=== PATIENT | female | born 1990 | race American Indian/Alaskan Native ===

== ENCOUNTER 2018-05-30 11:30 | Outpatient (CLI) | payer MEDICAID ==
[2018-05-30] MEDS ORDERED: LACTATED RINGERS 500 ML IV ONE (11:35)
[2018-05-30 11:46] VITALS: BP 118/59
== END 2018-05-30 12:35 | disposition home or self-care (01) ==
LOC: TRG 11:30
PROVIDERS: ATTEND Obstetrics & Gynecology
DX: O47.03 False labor before 37 completed weeks of gestation, third trimester (principal); Z3A.31 31 weeks gestation of pregnancy
CPT/HCPCS: 59025

== ENCOUNTER 2018-06-21 15:20 | Outpatient (CLI) | payer MEDICAID ==
[2018-06-21 17:22] LABS: Hematocrit 30.7 % (30.3-42.9); Hemoglobin 10.1 gm/dl (10.1-14.3); Mean Corpuscular HGB Conc 33 % (30-34); Mean Corpuscular Volume 94 fl (79-97); Platelet Count 329 K/mm3 (140-440); Red Blood Count 3.27 M/mm3 (3.65-5.03)
[2018-06-21 17:49] VITALS: BP 131/80
[2018-06-21] MEDS ORDERED: LACTATED RINGERS 500 ML IV ONE (20:01)
--- NOTE | 2018-06-21 22:46 | Ultrasound Report ---
US OB LIMITED CLINICAL INDICATION: Female, 28 years of age. r/o placenta ab / saira COMPARISON: None available. TECHNIQUE: Several real-time grayscale and color Doppler images were obtained. Permanent images were secured for documentation. FINDINGS: Limited exam performed. Single live IUP demonstrated. heart rate 129 bpm. Placenta lo cation anterior. No placenta previa. No evidence of placental abruption. Normal SAIRA 7.6 cm. pos ition is cephalic. IMPRESSION: Limited exam performed. presentation cephalic. SAIRA lower limits of normal measuring 7.6 cm. No placental abnormality. This document is electronically signed by Ellen Draper DO., June 21 2018 10:44:37 PM ET
--- NOTE | 2018-06-21 22:48 | Ultrasound Report ---
US OB BPP WO NON-STRESS CLINICAL INDICATION: Female, 28 years of age. bpp/re COMPARISON: Limited OB ultrasound from today. TECHNIQUE: Several real-time grayscale and color Doppler images were obtained. Permanent images were secured for documentation. FINDINGS: Normal breathing movements, movements, posture and tone, and qualitative amniotic fluid volume. heart rate 129 bpm. Impression: Biophysical profile score 8/8. This document is electronically signed by Ellen Draper DO., June 21 2018 10:46:00 PM ET
== END 2018-06-21 19:30 | disposition home or self-care (01) ==
LOC: TRG 15:20
PROVIDERS: ATTEND Obstetrics & Gynecology
DX: O47.03 False labor before 37 completed weeks of gestation, third trimester (principal); Z3A.35 35 weeks gestation of pregnancy
CPT/HCPCS: 36415; 59025; 76815; 76819; 85027

== ENCOUNTER 2018-07-30 00:21 | Inpatient (IN) | payer MEDICAID ==
[2018-07-30] MEDS ORDERED: NITRATEST PAPER MC ONE (01:10)
[2018-07-30] MEDS ORDERED: LACTATED RINGERS 1,000 ML ONE (01:15)
[2018-07-30] MEDS ORDERED: BRETHINE SUB-Q PRN (01:27)
[2018-07-30] MEDS ORDERED: XYLOCAINE 2% INFILTRATI ONE (01:27)
[2018-07-30] MEDS ORDERED: MINERAL OIL PO PRN (01:27)
[2018-07-30] MEDS ORDERED: SUBLIMAZE IV PRN (01:27)
[2018-07-30] MEDS ORDERED: BRETHINE IVP PRN (01:27)
[2018-07-30] MEDS ORDERED: AMPICILLIN/NS 2 GM/100 ML 2 GM/100 ML BAG IV ONE (01:27)
[2018-07-30 01:53] LABS: Hematocrit 34.1 % (30.3-42.9); Hemoglobin 11.1 gm/dl (10.1-14.3); Mean Corpuscular HGB Conc 33 % (30-34); Mean Corpuscular Volume 95 fl (79-97); Platelet Count 341 K/mm3 (140-440); Red Blood Count 3.59 M/mm3 (3.65-5.03); Red Cell Distribution Width 14.1 % (13.2-15.2)
[2018-07-30] MEDS ORDERED: PITOCin/NS 20 UNIT/1000ML DRIP 20 UNITS/1,000 ML BAG IV SCH (02:00)
[2018-07-30] MEDS ORDERED: LACTATED RINGERS 1,000 ML IV SCH (02:00)
[2018-07-30] MEDS ORDERED: MARCAINE 0.5% INFILTRATI ONE (02:12)
--- NOTE | 2018-07-30 02:37 | Anesthesia Consultation ---
Anesthesia Consult and Med Hx Date of service: 07/30/18 - Airway Anesthetic Teeth Evaluation: Good ROM Head & Neck: Adequate Mental/Hyoid Distance: Adequate Mallampati Class: Class II Intubation Access Assessment: Good - Pulmonary Exam CTA: Yes - Cardiac Exam Cardiac Exam: RRR - Pre-Operative Health Status ASA Pre-Surgery Classification: ASA2 Proposed Anesthetic Plan: Epidural - Pulmonary Hx Asthma: No COPD: No Hx Pneumonia: No - Cardiovascular System Hx Hypertension: No - Central Nervous System Hx Seizures: No Hx Psychiatric Problems: No - Endocrine Hx Renal Disease: No Hx End Stage Renal Disease: No Hx Hypothyroidism: No Hx Hyperthyroidism: No - Hematic Hx Anemia: No Hx Sickle Cell Disease: No - Other Systems Hx Alcohol Use: No
[2018-07-30] MEDS ORDERED: NARCAN 2 MG/2 ML IV PRN (02:38)
[2018-07-30] MEDS ORDERED: fentaNYL-BUPIV 2 MCG/ML-0.125% 200 MCG/100 ML BAG EPIDURAL SCH (03:00)
[2018-07-30] MEDS ORDERED: PITOCin/NS 30 UNIT/500ML 30 UNITS/500 ML BAG IV SCH (05:00)
[2018-07-30] MEDS ORDERED: AMPICILLIN/NS 1 GM/50 ML 1 GM/50 ML BAG IV SCH (05:27)
--- NOTE | 2018-07-30 07:24 | History and Physical Report ---
History of Present Illness Date of examination: 07/30/18 Date of admission: 07/30/18 04:27 Chief complaint: SROM, labor Past History Past Medical History: no pertinent history Past Surgical History: no surgical history Social history: no significant social history - Obstetrical History : 3 Medications and Allergies Allergies Allergy/AdvReac Type Severity Reaction Status Date / Time No Known Allergies Allergy Verified 07/30/18 01:09 Home Medications Medication Instructions Recorded Confirmed Last Taken Type Vit-Fe Fumar-FA [ 1 tab PO DAILY 07/30/18 07/30/18 07/29/18 History Vitamin] Active Meds: Active Medications Ephedrine Sulfate (Ephedrine Sulfate) 10 mg IV Q2M PRN PRN Reason: Hypotension Ephedrine Sulfate (Ephedrine Sulfate) 10 mg IV Q2M PRN PRN Reason: Hypotension Fentanyl (Sublimaze) 100 mcg IV Q2H PRN PRN Reason: Labor Pain Last Admin: 07/30/18 01:30 Dose: 100 mcg Documented by: Oxytocin/Sodium Chloride (Pitocin/Ns 20 Unit/1000ml Drip) 20 units in 1,000 mls @ 125 mls/hr IV DIRECT JASON Oxytocin/Sodium Chloride (Pitocin/Ns 30 Unit/500ml) 30 units in 500 mls @ 2 mls/hr IV TITR JASON; Protocol Lactated Ringer's (Lactated Ringers) 1,000 mls @ 125 mls/hr IV DIRECT JASON Last Admin: 07/30/18 02:00 Dose: 125 mls/hr Documented by: Ampicillin Sodium (Ampicillin/Ns 1 Gm/50 Ml) 1 gm in 50 mls @ 100 mls/hr IV Q4HR JASON; Protocol Last Admin: 07/30/18 06:46 Dose: 100 mls/hr Documented by: Fentanyl/Bupivacaine/Sodium Chlor (Fentanyl-Bupiv 2 Mcg/Ml-0.125%) 200 mcg in 100 mls @ 12 mls/hr EPIDURAL TITR JASON; Protocol Last Admin: 07/30/18 03:00 Dose: 12 mls/hr Documented by: Mineral Oil (Mineral Oil) 30 ml PO QHS PRN PRN Reason: Constipation Naloxone HCl (Narcan 2 Mg/2 Ml) 0.2 mg IV Q5M PRN PRN Reason: Respiratory sedation Terbutaline Sulfate (Brethine) 0.25 mg SUB-Q ONCE PRN PRN Reason: Hyperstimulation/Hypertonicity Terbutaline Sulfate (Brethine) 0.25 mg IVP ONCE PRN PRN Reason: Hyperstimulation/Hypertonicity Review of Systems All systems: negative - Vital Signs Vital signs: Vital Signs Pulse BP 85 125/72 07/30/18 00:38 07/30/18 00:38 Temp Pulse Resp BP Pulse Ox 97.6 F 85 16 104/59 100 07/30/18 03:11 07/30/18 07:19 07/30/18 03:11 07/30/18 07:19 07/30/18 07:16 - Physical Exam Breasts: Positive: deferred Cardiovascular: Regular rate Abdomen: Positive: normal appearance, soft Genitourinary (Female): Positive: normal external genitalia Uterus: Positive: normal size - Obstetrical FHR: auscultation normal, category 2 Uterine Contraction Monitor Mode: External Uterine Contraction Pattern: Regular Uterine Tone Measurement Phase: Resting Uterine Contraction Intensity: Strong/Firm Results Result Diagrams: 07/30/18 01:25 Abnormal lab results 07/30/18 Range/Units 01:25 WBC 14.4 H (4.5-11.0) K/mm3 RBC 3.59 L (3.65-5.03) M/mm3 All other labs normal. Assessment and Plan 1. SROM and active labor 2. Category 2 FHT, reassuring P: 1. Continue Pitocin augmentation. Anticipate
--- NOTE | 2018-07-30 08:29 | Procedure Note ---
OB Delivery Note - Vaginal Delivery presentation: vertex Delivery position: OA Intrapartum events: none, mult.variable deceleratio Delivery induction: none Delivery augmentation: pitocin Delivery monitor: external FHT, external uterine Route of delivery: Delivery placenta: spontaneous Delivery cord: other (Body cord) Episiotomy: none Delivery laceration: none Anesthesia: epidural Delivery comments: Excellent maternal effort resulted in of viable male weighing 6lb 8 oz, Apgars 8/9. Length of second stage: 2 minutes. Head restituted ROT, shoulders followed easily. Body cord x1 noted. EBL 300mL. Brisk bleeding upon delivery of placenta resolved with fundal massage and IV Pitocin. No lacerations noted. Placenta intact, du, 3 vessel cord. Bilateral polydactyly of hands noted on infant. Pt and infant skin to skin, plan on breast feeding.
[2018-07-30] MEDS ORDERED: LANSINOH TP PRN (08:32)
[2018-07-30] MEDS ORDERED: TYLENOL PO PRN (08:32)
[2018-07-30] MEDS ORDERED: PHENERGAN PO PRN (08:32)
[2018-07-30] MEDS ORDERED: BENADRYL PO PRN (08:32)
[2018-07-30] MEDS ORDERED: TUCKS PAD TP PRN (08:32)
[2018-07-30] MEDS ORDERED: PHENERGAN PR PRN (08:32)
[2018-07-30] MEDS ORDERED: ZOFRAN IV PRN (08:32)
[2018-07-30] MEDS ORDERED: SODIUM CHLORIDE FLUSH SYRINGE 10 ML IV NR (09:00)
[2018-07-30] MEDS ORDERED: DULCOLAX PR PRN (10:00)
[2018-07-30] MEDS ORDERED: AFLURIA QUAD 2018-2019 SYRINGE IM ONE (12:00)
[2018-07-30] MEDS: IBUPROFEN PO SCH (13:42)
--- NOTE | 2018-07-30 20:08 | Post Anesthesia Evaluation ---
- Post Anesthesia Evaluation Patient Participated: Yes Airway Patent: Yes Stable Respiratory Function: Yes Nausea/Vomiting: No Temp > 96.8F: Yes Pain Manageable: Yes Adequeate Hydration: Yes Anesthesia Complications: No Block Receding Appropriately: Yes Patient on Ventilator: No
[2018-07-30 21:35] LABS: Hematocrit 30.3 % (30.3-42.9); Hemoglobin 9.9 gm/dl (10.1-14.3)
[2018-07-30] MEDS ORDERED: MILK OF MAGNESIA PO PRN (22:00)
[2018-07-31] MEDS: IBUPROFEN PO SCH ×5 (00:23→22:09)
[2018-07-31] MEDS ORDERED: BOOSTRIX IM ONE (06:00)
--- NOTE | 2018-07-31 08:36 | Progress Note ---
Assessment and Plan 1. PPD1 s/p of viable male 2. Desires to breast feed, baby in NICU with formula 3. Vitals wnl 4. Iron deficiency anemia Plan: 1. consult, order breast pump 2. Iron supplementation 3. D/C tomorrow or on PPD3 Subjective - Subjective Date of service: 07/31/18 Principal diagnosis: vaginal delivery Interval history: day 1 s/p of viable male infant Patient reports: appetite normal, voiding normally, pain well controlled, ambulating normally [place]: in NICU Objective - Vital Signs Latest vital signs: Vital Signs Temp Pulse Resp BP BP Pulse Ox 07/31/18 01:23 18 07/31/18 00:23 18 07/31/18 00:08 98.2 F 79 20 116/73 98 07/30/18 16:28 98.2 F 85 18 115/59 07/30/18 13:03 98.2 F 70 18 125/81 07/30/18 11:00 98 F 71 18 116/72 99 07/30/18 10:31 80 124/78 07/30/18 10:16 76 120/73 07/30/18 10:01 75 120/61 07/30/18 09:46 70 116/62 07/30/18 09:31 71 121/68 07/30/18 09:16 77 124/68 07/30/18 09:02 81 133/79 07/30/18 08:46 75 129/65 Intake and Output 07/30/18 07/31/18 07/31/18 23:59 07:59 15:59 Intake Total 720 360 Balance 720 360 Intake: Oral 720 Intake, Free Water 360 Other: Total, Intake Amount 240 # Voids Void 1 1 - Exam Breasts: Present: deferred Cardiovascular: Present: Regular rate, Normal S1, Normal S2 Abdomen: Present: normal appearance, soft, normal bowel sounds Uterus: Present: normal, firm, fundal height below umbilicus Extremities: Present: normal - Labs Labs: Abnormal lab results 07/30/18 Range/Units 20:57 Hgb 9.9 L (10.1-14.3) gm/dl
[2018-07-31] MEDS ORDERED: FEOSOL PO SCH (10:00)
[2018-07-31] MEDS ORDERED: AFLURIA QUAD 2018-2019 SYRINGE IM ONE (12:00)
--- NOTE | 2018-08-01 01:27 | Progress Note ---
Assessment and Plan 1. PPD2 post of viable male , currently in NICU 2. Anemia 3. Vital signs stable 4. Breast pumping Plan: Discharge to home in the late afternoon Iron supplementation Follow up with pediatric surgeon in 2-4 weeks - Patient Problems (1) (spontaneous vaginal delivery) Current Visit: No Status: Acute Subjective - Subjective Date of service: 08/01/18 Principal diagnosis: vaginal delivery Interval history: day 1 s/p of viable male infant Patient reports: appetite normal, voiding normally, pain well controlled, bowel movement, ambulating normally : doing well, in NICU Objective - Vital Signs Latest vital signs: Vital Signs Temp Pulse Resp BP 07/31/18 16:25 98.3 F 69 18 120/79 07/31/18 07:40 97.8 F 78 18 114/61 Intake and Output 07/31/18 07/31/18 08/01/18 15:59 23:59 07:59 Intake Total 480 Balance 480 Intake: Oral 480 Other: Total, Intake Amount 480 - Exam Cardiovascular: Present: Regular rate, Normal S1, Normal S2 Lungs: Present: Clear to auscultation, Normal air movement Abdomen: Present: normal appearance, soft Uterus: Present: normal, firm, fundal height below umbilicus Extremities: Present: normal
[2018-08-01 01:28] VITALS: BP 117/79
--- NOTE | 2018-08-01 01:32 | Discharge Summary ---
Providers - Providers Date of Admission: 07/30/18 04:27 Date of discharge: 08/01/18 Attending physician: ANDREW MIRANDA MD 07/30/18 08:34 Consult to [employer] [CONS] Routine Reason For Exam: assistance with , SNS 07/31/18 08:37 Consult to [employer] [CONS] Urgent Reason For Exam: Primary care physician: ANDREW MIRANDA MD Hospitalization Reason for admission: active labor, rupture of membranes Delivery: Episiotomy: none Laceration: none Other procedures: none complications: none Discharge diagnosis: IUP at term delivered Condition at discharge: Good Disposition: DC-01 TO HOME OR SELFCARE - Discharge Diagnoses (1) (spontaneous vaginal delivery) Status: Acute Comment: rto 4 weeks for pp care (2) Anemia Status: Acute Qualifiers: Anemia type: iron deficiency Iron deficiency anemia type: unspecified iron deficiency Qualified Code(s): D50.9 - Iron deficiency anemia, unspecified Plan - Discharge Medications Prescriptions: Ferrous Sulfate [Feosol 325 MG tab] 325 mg PO BID #60 tablet Ibuprofen [Motrin 600 MG tab] 600 mg PO Q6H #30 tablet - Provider Discharge Summary Activity: no sex for 6 weeks, no heavy lifting 4 weeks, no strenuous exercise Diet: routine Additional instructions: [] Smoking cessation referral if applicable(refer to patient education folder for contact #) [] Refer to [facility] Booklet Call your doctor immediately for: * Fever > 100.5 * Heavy vaginal bleeding ( >1 pad per hour) * Severe persistent headache * Shortness of breath * Reddened, hot, painful area to leg or breast * Drainage or odor from incision. * Keep incision clean and dry at all times and follow doctor's instructions regarding bathing/showering - Follow up plan Follow up: BECCA NORTON CNM [Advanced Practice Nurse] - 7 Days () Forms: [facility] Discharge Summary, Discharge Signature Page
[2018-08-01] MEDS: IBUPROFEN PO SCH (03:21)
== END 2018-08-01 07:00 | disposition home or self-care (01) | DRG 775 ==
LOC: TRG 00:21 → LD 04:27 → OB 11:25
PROVIDERS: ADMIT Obstetrics & Gynecology; ATTEND Obstetrics & Gynecology
PROC: 10E0XZZ Delivery of Products of Conception, External Approach (ICD-10-PCS; principal; 2018-07-30)
PROC: 3E0R3BZ Introduction of Anesthetic Agent into Spinal Canal, Percutaneous Approach (ICD-10-PCS; 2018-07-30)
PROC: 00HU33Z Insertion of Infusion Device into Spinal Canal, Percutaneous Approach (ICD-10-PCS; 2018-07-30)
DX: O76 Abnormality in fetal heart rate and rhythm complicating labor and delivery (principal); O99.02 Anemia complicating childbirth; D50.0 Iron deficiency anemia secondary to blood loss (chronic); O69.89X0 Labor and delivery complicated by other cord complications, not applicable or unspecified; Z37.0 Single live birth; Z3A.40 40 weeks gestation of pregnancy
CPT/HCPCS: 36415; 85014; 85018; 85027; 86592; 86850; 86900; 86901; 90471; 90686; 90715; G0378; A6250; J0290; J2590; J3010; J7120